=== PATIENT | male | born 1965 | race Caucasian/White ===

== ENCOUNTER 2021-06-08 11:15 | Emergency (ER) | payer BC ==
[2021-06-08] MEDS ORDERED: Acetaminophen 500 MG Tab PO ONE (12:10)
--- NOTE | 2021-06-08 12:12 | EDM.PDOC ---
ED HPI GENERAL MEDICAL PROBLEM - General Chief Complaint: Respiratory Problem Stated Complaint: COVID POSITIVE/HARD TIME BREATHING Time Seen by Provider: 06/08/21 12:00 Source of Information: Reports: Patient, RN. Denies: Old Records History Limitations: Reports: Other (no old records) - History of Present Illness INITIAL COMMENTS - FREE TEXT/NARRATIVE: 55 yo male here with Covid. He was dx at the [facility] this past week with the dz. He has a non-productive cough, malaise, and mild SOB. He would like a note for missing work. Onset: Gradual Onset Date: 06/02/21 Duration: Day(s):, Getting Worse Location: Reports: Chest, Generalized Quality: Reports: Ache (mild) Severity: Mild Improves with: Reports: Medication Worsens with: Reports: Other (time, meds wearing off) Context: Reports: Other (See HPI) Associated Symptoms: Reports: Cough, Malaise, Shortness of Breath (mild). Denies: Fever/Chills Treatments [employer]: Reports: Other (see below) (none in last 6 hrs) - Related Data Allergies Allergy/AdvReac Type Severity Reaction Status Date / Time No Known Allergies Allergy Verified 06/08/21 11:53 Home Meds: Home Meds NK [No Known Home Meds] 06/09/14 [History] Past Medical History HEENT History: Reports: Impaired Vision Neurological History: Reports: None - Infectious Disease History Infectious Disease History: Reports: Chicken Pox, Novel Coronavirus - Past Surgical History Head Surgeries/Procedures: Reports: None HEENT Surgical History: Reports: None Neurological Surgical History: Reports: Discectomy Dermatological Surgical History: Reports: None Social & Family History - Tobacco Use Tobacco Use Status *Q: Never Tobacco User Second Hand Smoke Exposure: No - Caffeine Use Caffeine Use: Reports: Coffee - Alcohol Use Days Per Week of Alcohol Use: 1 Number of Drinks Per Day: 2 Total Drinks Per Week: 2 - Recreational Drug Use Recreational Drug Use: No ED ROS GENERAL - Review of Systems Review Of Systems: See Below Constitutional: Reports: Malaise HEENT: Reports: No Symptoms Respiratory: Reports: Shortness of Breath (mild), Cough. Denies: Wheezing, Pleuritic Chest Pain, Sputum Cardiovascular: Reports: Dyspnea on Exertion (mild). Denies: Edema GI/Abdominal: Reports: No Symptoms : Reports: No Symptoms Musculoskeletal: Reports: No Symptoms Skin: Reports: No Symptoms Neurological: Reports: No Symptoms ED EXAM, GENERAL - Physical Exam Exam: See Below Exam Limited By: No Limitations General Appearance: Alert, WD/WN, No Apparent Distress Eye Exam: Bilateral Eye: Normal Inspection Ears: Normal External Exam, Normal Canal, Hearing Grossly Normal Ear Exam: Bilateral Ear: Auricle Normal, Canal Normal Nose: Normal Inspection, No Blood Throat/Mouth: Normal Inspection, Normal Lips, Normal Oropharynx, Normal Voice, No Airway Compromise Head: Atraumatic, Normocephalic Neck: Normal Inspection Respiratory/Chest: No Respiratory Distress, No Accessory Muscle Use, Crackles (diffusely). No: Accessory Muscle Use Cardiovascular: Regular Rate, Rhythm, No Edema GI/Abdominal: Normal Bowel Sounds, Soft, Non-Tender, No Distention Extremities: Normal Inspection, Non-Tender, No Pedal Edema. No: Ana Laura's Sign Neurological: Alert, Oriented, CN II-XII Intact, Normal Cognition, No Motor/Sensory Deficits Psychiatric: Normal Affect, Normal Mood Skin Exam: Warm, Dry, Intact, Normal Color, No Rash Course - Vital Signs Last Recorded V/S: Last Vital Signs Temp 36.6 C 06/08/21 11:54 Pulse 84 06/08/21 11:54 Resp 18 06/08/21 11:54 BP 110/64 06/08/21 11:54 Pulse Ox 98 06/08/21 11:54 - Orders/Labs/Meds Labs: Laboratory Tests 06/08/21 Range/Units 12:31 WBC 2.8 L (4.5-11.0) K/uL RBC 4.42 (4.30-5.90) M/uL Hgb 13.8 (12.0-15.0) g/dL Hct 39.8 L (40.0-54.0) % MCV 90 (80-98) fL MCH 31 (27-31) pg MCHC 35 (32-36) % Plt Count 110 L (150-400) K/uL Neut % (Auto) 80.2 H (36-66) % Lymph % (Auto) 15.2 L (24-44) % [place] % (Auto) 4.6 (2-6) % Eos % (Auto) 0.0 L (2-4) % Baso % (Auto) 0.0 (0-1) % Meds: Medications Discontinued Medications Generic Name Dose Route Start Last Admin Trade Name Barbra PRN Reason Stop Dose Admin Acetaminophen 1,000 mg 06/08/21 12:10 06/08/21 12:27 Acetaminophen 500 Mg Tab PO 06/08/21 12:11 1,000 mg ONETIME ONE Administration Departure - Departure Time of Disposition: 12:42 Disposition: Home, Self-Care 01 Condition: Fair Clinical Impression: COVID-19 - Discharge Information *PRESCRIPTION DRUG MONITORING PROGRAM REVIEWED*: Not Applicable *COPY OF PRESCRIPTION DRUG MONITORING REPORT IN PATIENT ENEDINA: Not Applicable Instructions: COVID-19 Frequently Asked Questions, 10 Things You Can Do to Manage Your COVID-19 Symptoms at Home - [facility] (03/21/2021) Referrals: PCP,None [Primary Care Provider] - Forms: ED Department Discharge, ED Return to Work/School Form Additional Instructions: Take acetaminophen for body aches and fever. Lower your risk of blood clots by moving around every hour during the day and taking a baby aspirin daily. Boost your immune system by taking Zinc 25-50 mg daily and Vitamin D 0084-4012 units daily. Recheck if worse. Sepsis Event Note (ED) - Evaluation Sepsis Screening Result: No Definite Risk - Focused Exam Vital Signs: Vital Signs Temp Pulse Resp BP Pulse Ox 06/08/21 11:54 36.6 C 84 18 110/64 98 06/08/21 11:43 36.6 C 84 18 110/64 98
== END 2021-06-08 13:34 | disposition home or self-care (01) ==
LOC: JP.ED 11:15
DX: U07.1 COVID-19 (principal)
CPT/HCPCS: 36415; 85025; 99283; A9270

== ENCOUNTER 2021-06-12 02:45 | Emergency (ER) | payer BC ==
--- NOTE | 2021-06-12 03:13 | EDM.PDOC ---
ED HPI GENERAL MEDICAL PROBLEM - General Chief Complaint: Respiratory Problem Stated Complaint: COVID POSITIVE, LOW OXYGEN Time Seen by Provider: 06/12/21 03:08 Source of Information: Reports: Patient, Old Records History Limitations: Reports: No Limitations - History of Present Illness INITIAL COMMENTS - FREE TEXT/NARRATIVE: It is a 55-year-old male presenting to the ED for evaluation of increasing shortness of breath and hypoxia. Patient was diagnosed on 06/04/2021 with COVID- 19. He is unvaccinated. He does not have any significant past medical history including denying smoking, diabetes, hypertension, hyperlipidemia, or an immunodeficiency disease. The patient received monoclonal antibody therapy on 06/10/2021. He has remained at home but is checking his oximetry and reports that tonight his oximetry dropped to 84% on room air. Patient is symptomatically feeling more short of breath. He endorses having headache, cough, nasal congestion with sore throat, increasing dyspnea, nausea, and body aches. He has had a diminished appetite as well. - Related Data Allergies Allergy/AdvReac Type Severity Reaction Status Date / Time No Known Allergies Allergy Verified 06/12/21 02:53 Home Meds: Home Meds NK [No Known Home Meds] 06/09/14 [History] Past Medical History HEENT History: Reports: Impaired Vision Neurological History: Reports: None - Infectious Disease History Infectious Disease History: Reports: Chicken Pox, Novel Coronavirus - Past Surgical History Head Surgeries/Procedures: Reports: None HEENT Surgical History: Reports: None Neurological Surgical History: Reports: Discectomy Dermatological Surgical History: Reports: None Social & Family History - Tobacco Use Tobacco Use Status *Q: Never Tobacco User - Caffeine Use Caffeine Use: Reports: Coffee - Recreational Drug Use Recreational Drug Use: No ED ROS GENERAL - Review of Systems Review Of Systems: See Below Constitutional: Reports: Fever, Chills, Malaise, Weakness, Fatigue, Decreased Appetite HEENT: Reports: Rhinitis, Throat Pain Respiratory: Reports: Shortness of Breath, Cough Cardiovascular: Reports: No Symptoms Endocrine: Reports: Fatigue GI/Abdominal: Reports: Nausea : Reports: No Symptoms Musculoskeletal: Reports: Muscle Pain Skin: Reports: No Symptoms Neurological: Reports: Dizziness, Headache Psychiatric: Reports: Anxiety Hematologic/Lymphatic: Reports: No Symptoms Immunologic: Reports: No Symptoms ED EXAM, GENERAL - Physical Exam Exam: See Below Exam Limited By: No Limitations General Appearance: Alert, Anxious, Mild Distress Eye Exam: Bilateral Eye: EOMI, PERRL Nose: Nasal Swelling, Clear Rhinorrhea Throat/Mouth: Normal Inspection, Normal Oropharynx, Normal Voice, No Airway Compromise Head: Atraumatic, Normocephalic Neck: Normal Inspection, Supple, Full Range of Motion. No: Lymphadenopathy (R), Lymphadenopathy (L) Respiratory/Chest: No Respiratory Distress, No Accessory Muscle Use, Rhonchi (Scattered bilateral rhonchi) Cardiovascular: Normal Peripheral Pulses, Regular Rate, Rhythm, No Murmur Peripheral Pulses: 2+: Radial (L), Radial (R) GI/Abdominal: Normal Bowel Sounds, Soft, Non-Tender Back Exam: Normal Inspection, Full Range of Motion Extremities: Normal Inspection, Normal Range of Motion Neurological: Alert, Oriented, Normal Cognition, No Motor/Sensory Deficits Psychiatric: Normal Affect, Anxious Skin Exam: Warm, Dry, Intact, Normal Color, No Rash #1 Interpretation EKG Date: 06/12/21 Time: 03:11 Rhythm: NSR Rate (Beats/Min): 61 Crosby: LAD-Left Crosby Deviation P-Wave: Present QRS: Normal (Early R wave transition in the precordial leads) ST-T: Normal QT: Normal Comparison: NA - No Prior EKG Course - Vital Signs Last Recorded V/S: Last Vital Signs Temp 36.6 C 06/12/21 05:58 Pulse 56 L 06/12/21 11:20 Resp 16 06/12/21 06:04 BP 96/55 L 06/12/21 11:20 Pulse Ox 90 L 06/12/21 11:20 - Orders/Labs/Meds Orders: Active Orders 24 hr Category Date Time Status HEPATIC FUNCTION PANEL,HFP [CHEM] Stat Lab 06/12/21 05:25 Ordered Isolation [COMM] Stat Oth 06/12/21 05:21 Ordered Saline Lock Insert [OM.PC] Routine Oth 06/12/21 04:08 Ordered EKG 12 Lead [EK] Routine Ther 06/12/21 03:05 Ordered Labs: Laboratory Tests 06/12/21 06/12/21 06/12/21 Range/Units 03:20 03:20 03:20 WBC 2.9 L (4.5-11.0) K/uL RBC 4.48 (4.30-5.90) M/uL Hgb 14.2 (12.0-15.0) g/dL Hct 39.2 L (40.0-54.0) % MCV 88 (80-98) fL MCH 32 H (27-31) pg MCHC 36 (32-36) % Plt Count 134 L (150-400) K/uL Neut % (Auto) 77.9 H (36-66) % Lymph % (Auto) 15.0 L (24-44) % [place] % (Auto) 6.8 H (2-6) % Eos % (Auto) 0.0 L (2-4) % Baso % (Auto) 0.3 (0-1) % D-Dimer, Quantitative 1358.38 H (0.0-500.0) ng/mL Sodium 121 L (140-148) mmol/L Potassium 3.7 (3.6-5.2) mmol/L Chloride 84 L (100-108) mmol/L Carbon Dioxide 32 (21-32) mmol/L Anion Gap 8.7 (5.0-14.0) mmol/L BUN 10 (7-18) mg/dL Creatinine 1.0 (0.8-1.3) mg/dL Est Cr Clr Drug Dosing 77.58 mL/min Estimated GFR (MDRD) > 60 (>60) Glucose 113 H (74-106) mg/dL Lactic Acid (0.4-2.0) mmol/L Calcium 7.6 L (8.5-10.1) mg/dL Ferritin 3734 H (8-388) ng/ml Total Bilirubin 0.5 (0.2-1.0) mg/dL AST 308 H (15-37) U/L ALT 113 H (12-78) U/L Alkaline Phosphatase 69 (46-116) U/L Lactate Dehydrogenase 720 H (85-227) U/L Troponin I < 0.017 (0.000-0.056) ng/mL C-Reactive Protein 2.65 H (0.0-0.3) mg/dL Total Protein 5.2 L (6.4-8.2) g/dL Albumin 2.7 L (3.4-5.0) g/dL Globulin 2.5 (2.3-3.5) g/dL Albumin/Globulin Ratio 1.1 L (1.2-2.2) Procalcitonin ng/mL 06/12/21 06/12/21 Range/Units 03:20 03:20 WBC (4.5-11.0) K/uL RBC (4.30-5.90) M/uL Hgb (12.0-15.0) g/dL Hct (40.0-54.0) % MCV (80-98) fL MCH (27-31) pg MCHC (32-36) % Plt Count (150-400) K/uL Neut % (Auto) (36-66) % Lymph % (Auto) (24-44) % [place] % (Auto) (2-6) % Eos % (Auto) (2-4) % Baso % (Auto) (0-1) % D-Dimer, Quantitative (0.0-500.0) ng/mL Sodium (140-148) mmol/L Potassium (3.6-5.2) mmol/L Chloride (100-108) mmol/L Carbon Dioxide (21-32) mmol/L Anion Gap (5.0-14.0) mmol/L BUN (7-18) mg/dL Creatinine (0.8-1.3) mg/dL Est Cr Clr Drug Dosing mL/min Estimated GFR (MDRD) (>60) Glucose (74-106) mg/dL Lactic Acid 1.5 (0.4-2.0) mmol/L Calcium (8.5-10.1) mg/dL Ferritin (8-388) ng/ml Total Bilirubin (0.2-1.0) mg/dL AST (15-37) U/L ALT (12-78) U/L Alkaline Phosphatase (46-116) U/L Lactate Dehydrogenase (85-227) U/L Troponin I (0.000-0.056) ng/mL C-Reactive Protein (0.0-0.3) mg/dL Total Protein (6.4-8.2) g/dL Albumin (3.4-5.0) g/dL Globulin (2.3-3.5) g/dL Albumin/Globulin Ratio (1.2-2.2) Procalcitonin 0.06 ng/mL Meds: Medications Discontinued Medications Generic Name Dose Route Start Last Admin Trade Name Freq PRN Reason Stop Dose Admin Acetaminophen 650 mg 10/07/21 05:21 06/12/21 05:58 Acetaminophen 325 Mg Tab PO 650 mg Q4H PRN Administration Fever Greater Than 101 Dexamethasone 6 mg 06/12/21 05:30 06/12/21 10:02 Dexamethasone 4 Mg/Ml Sdv IVPUSH 06/20/21 09:01 Not Given DAILY ABDIRASHID Sodium Chloride 100 mls @ 4 mls/sec 06/12/21 04:23 06/12/21 04:39 Normal Saline IV 06/12/21 04:24 4 mls/sec ASDIRECTED STA Administration Remdesivir 200 mg/ Sodium 250 mls @ 250 mls/hr 06/12/21 05:21 06/12/21 06:06 Chloride IV 06/12/21 05:22 Not Given ONETIME ONE Remdesivir 200 mg/ Sodium 250 mls @ 250 mls/hr 06/12/21 05:24 06/12/21 06:03 Chloride IV 06/12/21 05:25 250 mls/hr ONETIME ONE Administration Iopamidol 100 ml 06/12/21 04:23 06/12/21 04:38 Iopamidol 755 Mg/Ml 100 Ml Bottle IV 06/12/21 04:24 100 ml . DIRECTED STA Administration Sodium Chloride 10 ml 06/12/21 04:08 06/12/21 04:14 Sodium Chloride 0.9% 10 Ml Syringe FLUSH 10 ml ASDIRECTED PRN Administration Keep Vein Open - Radiology Interpretation Free Text/Narrative:: I reviewed the images and report of the portable chest x-ray which shows diffuse patchy infiltrates in bilateral lung torres consistent with COVID-19. I reviewed the images of the CT chest angiogram showing diffuse groundglass infiltrates bilaterally consistent with a viral pneumonia due to COVID-19. There is no evidence for pulmonary emboli. - Re-Assessments/Exams Free Text/Narrative Re-Assessment/Exam: 06/12/21 05:10 reviewed the patient's labs with a CBC showing a leukocyte count of 2.9, hemoglobin of 14.2, hematocrit of 39.2 and a platelet count of 134,000. The comprehensive metabolic panel is remarkable for a sodium of 121, potassium 3.7, chloride of 84, bicarbonate of 32, BUN of 10 with a creatinine of 1.0 and a glucose of 113. Calcium is low at 7.6. The AST is 303 and the ALT is 113. The D-dimer is 1358. For this reason we proceeded with a CT angiogram of the chest in addition to the hypoxia the patient is exhibiting. The CT angio of the chest shows diffuse groundglass patchy infiltrates in both lungs consistent with a viral pneumonia due to COVID-19. There was no evidence for pulmonary emboli. The lactic acid is 1.5, procalcitonin of 0.06, ferritin of 3734, C- reactive protein of 2.65, LDH of 720 and troponin is less than 0.017. The patient is requiring at least a liter per minute of oxygen via nasal cannula to maintain saturations above 90%. With his extensive as his pulmonary groundglass infiltrates are causing his hypoxia, he will likely need hospitalization. There are currently no beds available here are in the surrounding area. Patient was placed on a waiting list for [facility] for hospitalization, until then we will have to border him in the ED. I did initiate therapy with dexamethasone and remdesivir in the ED pending the patient's admission. Departure - Departure Time of Disposition: 14:18 Disposition: Home, Self-Care 01 Clinical Impression: COVID-19, Pneumonia due to COVID-19 virus, Hyponatremia, Elevated liver transaminase level, Elevated d-dimer, Hypocalcemia, Hypoxia - Discharge Information Instructions: 10 Things You Can Do to Manage Your COVID-19 Symptoms at Home - [facility] (03/21/2021), COVID-19: What to Do If You Are Sick- [facility] (11/20/2020) Referrals: Rivera Frey CLERK [employer] [Primary Care Provider] - Forms: ED Department Discharge Additional Instructions: I recommend that you quarantine for five more days (end after 06/17). This will complete 14 days of quarantine. If your symptoms do not improve over the next few days you may need a longer quarantine period. Keep track of your oxygen numbers while you are at home and if you experience significant shortness of breath or have oxygen saturations that persist at a level less than 88% you should seek medical attention. Increase your activity slowly as tolerated over the next several days. Do your best to maintain adequate food and fluid intake. Sepsis Event Note (ED) - Evaluation Sepsis Screening Result: No Definite Risk - Focused Exam Vital Signs: Vital Signs Pulse Resp BP Pulse Ox 06/12/21 11:20 56 L 96/55 L 90 L 06/12/21 09:18 90/54 L 06/12/21 08:18 98/53 L 06/12/21 07:18 56 L 92/56 L 94 L 06/12/21 06:18 57 L 102/60 94 L 06/12/21 06:04 61 16 105/63 93 L - Problem List & Annotations (1) COVID-19 SNOMED Code(s): 305638485 Code(s): U07.1 - COVID-19 Status: Acute Priority: High (2) Elevated d-dimer SNOMED Code(s): 613768307 Code(s): R79.89 - OTHER SPECIFIED ABNORMAL FINDINGS OF BLOOD CHEMISTRY Status: Acute Priority: High (3) Elevated liver transaminase level SNOMED Code(s): 314361870 Code(s): R74.01 - ELEVATION OF LEVELS OF LIVER TRANSAMINASE LEVELS Status: Acute Priority: High (4) Hypocalcemia SNOMED Code(s): 1823935 Code(s): E83.51 - HYPOCALCEMIA Status: Acute Priority: High (5) Hyponatremia SNOMED Code(s): 97480762 Code(s): E87.1 - HYPO-OSMOLALITY AND HYPONATREMIA Status: Acute Priority: High (6) Hypoxia SNOMED Code(s): 865720283 Code(s): R09.02 - HYPOXEMIA Status: Acute Priority: High (7) Pneumonia due to COVID-19 virus SNOMED Code(s): 948628470898636643 Code(s): U07.1 - COVID-19; J12.82 - PNEUMONIA DUE TO CORONAVIRUS DISEASE 2019 Status: Acute Priority: High - Problem List Review Problem List Initiated/Reviewed/Updated: Yes - My Orders Last 24 Hours: My Active Orders 06/12/21 03:05 EKG 12 Lead [EK] Routine 06/12/21 04:08 Saline Lock Insert [OM.PC] Routine 06/12/21 05:21 Isolation [COMM] Stat 06/12/21 05:25 HEPATIC FUNCTION PANEL,HFP [CHEM] Stat - Assessment/Plan Last 24 Hours: My Active Orders 06/12/21 03:05 EKG 12 Lead [EK] Routine 06/12/21 04:08 Saline Lock Insert [OM.PC] Routine 06/12/21 05:21 Isolation [COMM] Stat 06/12/21 05:25 HEPATIC FUNCTION PANEL,HFP [CHEM] Stat
--- NOTE | 2021-06-12 03:50 | CRLCR ---
For Patients: As a result of the Cures Act, medical imaging exams and procedure reports are released immediately into your electronic medical record. You may view this report before your referring provider. If you have questions, please contact your health care provider. Indication: Dyspnea and hypoxia. COVID infection. Technique: Chest 1 view Comparison: None Findings/Impression: Cardiovascular and mediastinum: Normal heart size with aortic tortuosity and atherosclerotic calcification. Lungs and pleural space: No pleural effusion or pneumothorax. Patchy bilateral airspace opacities consistent pneumonia, presumed COVID-19 pneumonia. Bones and soft tissues: No acute findings. Dictated by Chino Sharma MD @ 06/12/2021 3:47:36 AM (Electronically Signed)
[2021-06-12] MEDS ORDERED: Sodium Chloride 0.9% 10 ML Syringe FLUSH PRN (04:08)
[2021-06-12] MEDS ORDERED: Sodium Chloride 0.9% 100 ML IV STA (04:23)
[2021-06-12] MEDS ORDERED: Iopamidol 755 Mg/ML 100 ML Bottle IV STA (04:23)
[2021-06-12] MEDS ORDERED: REMDESIVIR 200 MG in Sodium Chloride 0.9% 250 ML IV ONE ×2 (05:21→05:24)
[2021-06-12] MEDS ORDERED: Acetaminophen 325 MG Tab PO PRN (05:21)
[2021-06-12] MEDS: Dexamethasone 4 MG/ML SDV IVPUSH SCH ×2 (05:58→10:02)
--- NOTE | 2021-06-12 06:12 | CRLCT ---
For Patients: As a result of the Century Cures Act, medical imaging exams and procedure reports are released immediately into your electronic medical record. You may view this report before your referring provider. If you have questions, please contact your health care provider. INDICATION: Hypoxia, COVID infection TECHNIQUE: CT chest PE was acquired with 100 cc Isovue 370 intravenous contrast. COMPARISON: None. FINDINGS: Heart and vasculature: Contrast opacification of the pulmonary arterial tree is adequate. No sign of pulmonary embolism. Thoracic aorta is normal in caliber with atherosclerotic calcification. No pericardial effusion. Lungs and pleural: Trace bilateral pleural effusions. Extensive bilateral ground-glass opacities throughout both lungs. Lymph nodes/mediastinum: Subcarinal lymph nodes measure 11 millimeters, right hilar lymph nodes measure 13 millimeters and left paratracheal lymph nodes measure 10 millimeters. Chest wall: No masses. Upper abdomen: 2 millimeter hypodensity within the dome of the liver which is too small for characterization. Bones: Unremarkable for age. IMPRESSION: 1. No evidence of pulmonary embolus. 2. Extensive bilateral ground-glass opacities consistent with a viral pneumonia, presumed COVID-19 pneumonia. 3. Mediastinal and hilar adenopathy, presumed reactive to the pulmonary infection. Please note that all CT scans at this facility use dose modulation, iterative reconstruction, and/or weight-based dosing when appropriate to reduce radiation dose to as low as reasonably achievable. Dictated by Chino Sharma MD @ 06/12/2021 6:11:29 AM (Electronically Signed)
--- NOTE | 2021-06-12 13:43 | PCM.CONS ---
H&P History of Present Illness - General Date of Service: 06/12/21 Source of Information: Patient, Provider History Limitations: Reports: No Limitations - History of Present Illness Initial Comments - Free Text/Narative: CC: I couldn't breathe HPI: Philip presented to the emergency room this morning with shortness of breath and hypoxia. He has had symptoms of Covid including cough, shortness of breath, headache, myalgias, weakness, nausea and diarrhea since June 04, about 9 days ago. He did receive monoclonal antibodies 2 days ago. He did not think that the monoclonal antibodies made him feel any better. He has been keeping track of his oxygen numbers at home and most of the time they have been in the low to mid 90s. This morning he noted that they were around 84% so he came to the emergency room for further evaluation at the direction of the nurse contact line. Initially in the emergency room his oxygenation was borderline with upper 80s and lower 90s. He was placed on 1 L of oxygen. He did receive a dose of remdesivir and dexamethasone. The patient reports that he is feeling much better at this time. His oxygenation has improved and he is in the low 90s on room air. He has not had recent fevers but did early in the course of the disease. His headaches have resolved. Overall he says he is feeling fairly decent. We did discuss admission for observation overnight versus monitoring things at home. He felt that with his pulse oximeter he would be able to keep a close eye on his clinical status and would like to try as an outpatient. - Related Data Allergies/Adverse Reactions: Allergies Allergy/AdvReac Type Severity Reaction Status Date / Time No Known Allergies Allergy Verified 06/12/21 02:53 Home Medications: Home Meds NK [No Known Home Meds] 06/09/14 [History] Past Medical History HEENT History: Reports: Impaired Vision Neurological History: Reports: None - Infectious Disease History Infectious Disease History: Reports: Chicken Pox, Novel Coronavirus - Past Surgical History Head Surgeries/Procedures: Reports: None HEENT Surgical History: Reports: None Neurological Surgical History: Reports: Discectomy Dermatological Surgical History: Reports: None Social & Family History - Family History Cardiac: Denies: CAD - Tobacco Use Tobacco Use Status *Q: Never Tobacco User - Caffeine Use Caffeine Use: Reports: Coffee - Alcohol Use Alcohol Use History: No - Recreational Drug Use Recreational Drug Use: No H&P Review of Systems - Review of Systems: Review Of Systems: See Below Free Text/Narrative: A complete 12 point review of systems was obtained. Pertinent positives and negatives are noted in the history of present illness. All other systems were reviewed and were negative except as noted. Exam - Exam Exam: See Below - Vital Signs Vital Signs: Last Vital Signs Temp 36.6 C 06/12/21 05:58 Pulse 56 L 06/12/21 11:20 Resp 16 06/12/21 06:04 BP 96/55 L 06/12/21 11:20 Pulse Ox 90 L 06/12/21 11:20 Weight: 72.575 kg - Exam Quality Assessment: No: Supplemental Oxygen General: Alert, Oriented, Cooperative. No: Mild Distress HEENT: Conjunctiva Clear, Mucosa Moist & [place] Lungs: Normal Respiratory Effort. No: Wheezing Cardiovascular: Regular Rate, Regular Rhythm GI/Abdominal Exam: Soft, No Distention Extremities: No Pedal Edema. No: Increased Warmth Skin: Warm, Dry Neuro Extensive - Mental Status: Alert, Oriented x3 Neuro Extensive - Motor, Sensory, Reflexes: No: Dysarthria, Tremor Psychiatric: Alert, Normal Affect - Patient Data Lab Results Last 24 hrs: Laboratory Results - last 24 hr 06/12/21 06/12/21 06/12/21 Range/Units 03:20 03:20 03:20 WBC 2.9 L (4.5-11.0) K/uL RBC 4.48 (4.30-5.90) M/uL Hgb 14.2 (12.0-15.0) g/dL Hct 39.2 L (40.0-54.0) % MCV 88 (80-98) fL MCH 32 H (27-31) pg MCHC 36 (32-36) % Plt Count 134 L (150-400) K/uL Neut % (Auto) 77.9 H (36-66) % Lymph % (Auto) 15.0 L (24-44) % [place] % (Auto) 6.8 H (2-6) % Eos % (Auto) 0.0 L (2-4) % Baso % (Auto) 0.3 (0-1) % D-Dimer, Quantitative 1358.38 H (0.0-500.0) ng/mL Sodium 121 L (140-148) mmol/L Potassium 3.7 (3.6-5.2) mmol/L Chloride 84 L (100-108) mmol/L Carbon Dioxide 32 (21-32) mmol/L Anion Gap 8.7 (5.0-14.0) mmol/L BUN 10 (7-18) mg/dL Creatinine 1.0 (0.8-1.3) mg/dL Est Cr Clr Drug Dosing 77.58 mL/min Estimated GFR (MDRD) > 60 (>60) Glucose 113 H (74-106) mg/dL Lactic Acid (0.4-2.0) mmol/L Calcium 7.6 L (8.5-10.1) mg/dL Ferritin 3734 H (8-388) ng/ml Total Bilirubin 0.5 (0.2-1.0) mg/dL AST 308 H (15-37) U/L ALT 113 H (12-78) U/L Alkaline Phosphatase 69 (46-116) U/L Lactate Dehydrogenase 720 H (85-227) U/L Troponin I < 0.017 (0.000-0.056) ng/mL C-Reactive Protein 2.65 H (0.0-0.3) mg/dL Total Protein 5.2 L (6.4-8.2) g/dL Albumin 2.7 L (3.4-5.0) g/dL Globulin 2.5 (2.3-3.5) g/dL Albumin/Globulin Ratio 1.1 L (1.2-2.2) Procalcitonin ng/mL 06/12/21 06/12/21 Range/Units 03:20 03:20 WBC (4.5-11.0) K/uL RBC (4.30-5.90) M/uL Hgb (12.0-15.0) g/dL Hct (40.0-54.0) % MCV (80-98) fL MCH (27-31) pg MCHC (32-36) % Plt Count (150-400) K/uL Neut % (Auto) (36-66) % Lymph % (Auto) (24-44) % [place] % (Auto) (2-6) % Eos % (Auto) (2-4) % Baso % (Auto) (0-1) % D-Dimer, Quantitative (0.0-500.0) ng/mL Sodium (140-148) mmol/L Potassium (3.6-5.2) mmol/L Chloride (100-108) mmol/L Carbon Dioxide (21-32) mmol/L Anion Gap (5.0-14.0) mmol/L BUN (7-18) mg/dL Creatinine (0.8-1.3) mg/dL Est Cr Clr Drug Dosing mL/min Estimated GFR (MDRD) (>60) Glucose (74-106) mg/dL Lactic Acid 1.5 (0.4-2.0) mmol/L Calcium (8.5-10.1) mg/dL Ferritin (8-388) ng/ml Total Bilirubin (0.2-1.0) mg/dL AST (15-37) U/L ALT (12-78) U/L Alkaline Phosphatase (46-116) U/L Lactate Dehydrogenase (85-227) U/L Troponin I (0.000-0.056) ng/mL C-Reactive Protein (0.0-0.3) mg/dL Total Protein (6.4-8.2) g/dL Albumin (3.4-5.0) g/dL Globulin (2.3-3.5) g/dL Albumin/Globulin Ratio (1.2-2.2) Procalcitonin 0.06 ng/mL Result Diagrams: 06/12/21 03:20 06/12/21 03:20 Imaging Impressions Last 24 hrs: Chest x-ray-image personally reviewed-mild diffuse patchy infiltrates especially in the lower lung torres. No effusions or masses. Heart size is normal. CT pulmonary angiogram-diffuse bilateral groundglass opacities especially in the lower lung torres consistent with Covid infection. No pulmonary embolus. Heart size normal and no pericardial effusion. Sepsis Event Note - Evaluation Sepsis Screening Result: No Definite Risk - Focused Exam Vital Signs: Vital Signs Temp Temp Pulse Resp BP Pulse Ox 06/12/21 11:20 56 L 96/55 L 90 L 06/12/21 09:18 90/54 L 06/12/21 08:18 98/53 L 06/12/21 07:18 56 L 92/56 L 94 L 06/12/21 06:18 57 L 102/60 94 L 06/12/21 06:04 61 16 105/63 93 L 06/12/21 05:58 36.6 C 06/12/21 05:12 57 L 94 L 06/12/21 04:34 106/65 06/12/21 04:14 36.7 C 63 18 92 L 06/12/21 03:35 67 105/65 93 L 06/12/21 02:55 36.4 C 61 20 108/59 L 91 L Consult PN Assessment/Plan Procedures: Procedures COMPLETE CBC W/AUTO DIFF WBC (06/08/21) EMERGENCY DEPT VISIT (06/08/21) EMERGENCY DEPT VISIT (06/09/14) IMMUNIZATION ADMIN (06/09/14) ROUTINE VENIPUNCTURE (06/08/21) RPR S/N/AX/GEN/TRNK2.6-7.5CM (06/09/14) TDAP VACCINE 7 YRS/> IM (06/09/14) X-RAY EXAM L-S SPINE 2/3 VWS (12/26/14) X-RAY EXAM OF HIP (12/26/14) (1) Pneumonia due to COVID-19 virus SNOMED Code(s): 699904148645763653 Code(s): U07.1 - COVID-19; J12.82 - PNEUMONIA DUE TO CORONAVIRUS DISEASE 2019 Priority: High Current Visit: Yes Problem List Initiated/Reviewed/Updated: Yes Plan: ASSESSMENT AND RECOMMENDATIONS - COVID-19 pneumonia -transient hypoxia this morning. Now saturating well on room air. Physically he is feeling good. He has had monoclonal antibodies within the last 48 hours. Did receive dexamethasone and remdesivir in the emergency room this morning. No fevers. We did discuss hospitalization for observation versus trial of outpatient management. Patient feels that since he is doing better he would like to try this at home. He does have a pulse oximeter. He does not have any chronic medical conditions that would make me worry he has a high risk for progressing to severe illness. D-dimer and CRP elevations are mild to moderate. I think he should be safe for outpatient management. Management will be symptomatic along with close monitoring of his oxygenation. I did encourage him to return to the emergency room if he develops significant shortness of breath or if he has persistent hypoxia while he is at home. He was in agreement with the plan to try this at home. -Patient is stable and safe for outpatient management at this point. He does not require supplemental oxygen. -Symptomatic management of cough and/or fever -Return to the emergency room if symptoms progress or you have persistent hypoxi a Requesting Provider: Dr Thapa Date Consult Requested: 06/12/21 Reason for Consult: covid Patient History Reviewed: Yes Admission H&P Reviewed: No Notified Requestor: Yes Time Spent (in minutes): 45
== END 2021-06-12 14:18 | disposition home or self-care (01) ==
LOC: JP.ED 02:45
DX: U07.1 COVID-19 (principal); J12.82 Pneumonia due to coronavirus disease 2019; E87.1 Hypo-osmolality and hyponatremia; E83.51 Hypocalcemia; R79.89 Other specified abnormal findings of blood chemistry; R74.01 Elevation of levels of liver transaminase levels
CPT/HCPCS: 36415; 71045; 71275; 80053; 82728; 83605; 83615; 84145; 84484; 85025; 85379; 86140; 93005; 99285; A9270; J1100; J7050; Q9967

== ENCOUNTER 2021-06-13 11:02 | Emergency (ER) | payer BC ==
--- NOTE | 2021-06-13 12:52 | EDM.PDOC ---
ED HPI GENERAL MEDICAL PROBLEM - General Chief Complaint: Respiratory Problem Stated Complaint: COVID POSITIVE, SOB Time Seen by Provider: 06/13/21 11:20 Source of Information: Reports: Patient, Old Records History Limitations: Reports: No Limitations - History of Present Illness INITIAL COMMENTS - FREE TEXT/NARRATIVE: pt had a positive covid test on jun 04. He has been dealing with sob and has been monitoring his o2 sats at home. He id get some low readings and was concerned. He has been seen several times. He has received the monoclonal therapy. He has been drinking ok. His appetite is poor. Onset: Gradual, Other (pt had a positive test on 06/04. ) Duration: Day(s): Location: Reports: Chest, Generalized Associated Symptoms: Reports: Cough, Headaches, Weakness - Related Data Allergies Allergy/AdvReac Type Severity Reaction Status Date / Time No Known Allergies Allergy Verified 06/12/21 02:53 Home Meds: Home Meds NK [No Known Home Meds] 06/09/14 [History] Past Medical History HEENT History: Reports: Impaired Vision Respiratory History: Reports: Other (See Below) Other Respiratory History: 06/04/21 pos for covid Neurological History: Reports: None - Infectious Disease History Infectious Disease History: Reports: Chicken Pox, Novel Coronavirus - Past Surgical History Head Surgeries/Procedures: Reports: None HEENT Surgical History: Reports: None Neurological Surgical History: Reports: Discectomy Dermatological Surgical History: Reports: None Social & Family History - Tobacco Use Tobacco Use Status *Q: Never Tobacco User - Caffeine Use Caffeine Use: Reports: Coffee - Recreational Drug Use Recreational Drug Use: No ED ROS GENERAL - Review of Systems Review Of Systems: See Below Constitutional: Reports: Malaise, Weakness HEENT: Reports: No Symptoms Respiratory: Reports: Shortness of Breath, Other (o2 sat reading at home was low. pt is coughing up bloody sputum but this was going on before he had the angio of the chest. ) Cardiovascular: Reports: No Symptoms Endocrine: Reports: No Symptoms GI/Abdominal: Reports: Decreased Appetite : Reports: No Symptoms Musculoskeletal: Reports: No Symptoms Skin: Reports: No Symptoms ED EXAM, GENERAL - Physical Exam Exam: See Below Free Text/Narrative:: pt arrived concerned that his o2 sats were low on the o2 sater he has at home. he is feeling about the same. His appetite continues to be poor. Exam Limited By: No Limitations General Appearance: Alert, Anxious, Mild Distress Ears: Normal TMs Nose: Normal Inspection Throat/Mouth: Normal Inspection Head: Atraumatic Neck: Normal Inspection Respiratory/Chest: Other (pt has rhonchi in the upper lung torres. ) Cardiovascular: Regular Rate, Rhythm GI/Abdominal: Soft, Non-Tender (Male) Exam: Deferred Rectal (Males) Exam: Deferred Back Exam: Normal Inspection Neurological: Alert, Oriented, Normal Cognition Course - Vital Signs Last Recorded V/S: Last Vital Signs Temp 35.2 C L 06/13/21 11:18 Pulse 49 L 06/13/21 11:18 Resp 20 06/13/21 11:18 BP 105/58 L 06/13/21 11:18 Pulse Ox 92 L 06/13/21 11:18 - Orders/Labs/Meds Labs: Laboratory Tests 06/13/21 06/13/21 Range/Units 12:06 12:06 WBC 4.3 L (4.5-11.0) K/uL RBC 4.63 (4.30-5.90) M/uL Hgb 14.6 (12.0-15.0) g/dL Hct 41.3 (40.0-54.0) % MCV 89 (80-98) fL MCH 32 H (27-31) pg MCHC 35 (32-36) % Plt Count 186 (150-400) K/uL Neut % (Auto) 71.1 H (36-66) % Lymph % (Auto) 11.4 L (24-44) % [place] % (Auto) 17.0 H (2-6) % Eos % (Auto) 0.0 L (2-4) % Baso % (Auto) 0.5 (0-1) % Sodium 128 L (140-148) mmol/L Potassium 3.8 (3.6-5.2) mmol/L Chloride 91 L (100-108) mmol/L Carbon Dioxide 29 (21-32) mmol/L Anion Gap 11.8 (5.0-14.0) mmol/L BUN 18 D (7-18) mg/dL Creatinine 0.8 (0.8-1.3) mg/dL Est Cr Clr Drug Dosing 95.26 mL/min Estimated GFR (MDRD) > 60 (>60) Glucose 123 H (74-106) mg/dL Calcium 8.0 L (8.5-10.1) mg/dL Total Bilirubin 0.4 (0.2-1.0) mg/dL AST 171 H (15-37) U/L ALT 103 H (12-78) U/L Alkaline Phosphatase 68 (46-116) U/L Total Protein 5.4 L (6.4-8.2) g/dL Albumin 2.8 L (3.4-5.0) g/dL Globulin 2.6 (2.3-3.5) g/dL Albumin/Globulin Ratio 1.1 L (1.2-2.2) - Re-Assessments/Exams Free Text/Narrative Re-Assessment/Exam: 06/13/21 13:02 pt had chems done. His sodium was up from last time. His liver enzymes are improving. He has had a angio of the chest which did not show clots. Departure - Departure Time of Disposition: 12:51 Disposition: Home, Self-Care 01 Condition: Fair Clinical Impression: Pneumonia due to COVID-19 virus - Discharge Information Instructions: COVID-19 Frequently Asked Questions, What You Should Know About COVID-19 to Protect Yourself and Others - CDC, When You've Been Fully Vaccinated: How to Protect Yourself and Others - CDC (01/16/2021) Referrals: PCP,None [Primary Care Provider] - Forms: ED Department Discharge Sepsis Event Note (ED) - Focused Exam Vital Signs: Vital Signs Temp Pulse Resp BP Pulse Ox 06/13/21 11:18 35.2 C L 49 L 20 105/58 L 92 L
== END 2021-06-13 13:15 | disposition home or self-care (01) ==
LOC: JP.ED 11:02
DX: U07.1 COVID-19 (principal); J12.82 Pneumonia due to coronavirus disease 2019
CPT/HCPCS: 36415; 80053; 85025; 99283

== ENCOUNTER 2024-06-28 08:12 | Day surgery (SDC) | payer BC ==
[2024-06-28] MEDS ORDERED: Propofol 200 MG/20 ML SDV ONE (08:17)
[2024-06-28] MEDS ORDERED: Midazolam 1 MG/ML 2 ML SDV ONE (08:17)
[2024-06-28] MEDS ORDERED: fentaNYL 100 MCG/2 ML SDV ONE (08:17)
[2024-06-28] MEDS ORDERED: Dexamethasone 4 MG/ML SDV ONE (08:17)
[2024-06-28] MEDS ORDERED: Ondansetron 4 MG/2 ML SDV ONE (08:17)
[2024-06-28] MEDS ORDERED: Bupivacaine 0.5% 30 ML SDV ONE (08:18)
[2024-06-28 08:38] LABS: BASOPHILS ABSOLUTE AUTO 0.04 K/uL (0.00-0.10); EOSINOPHILS ABSOLUTE AUTO 0.11 K/uL (0.00-0.40); EOSINOPHILS PERCENT AUTO 2.6 % (0.0-5.4); HEMATOCRIT 44.3 % (38.4-49.7); HEMOGLOBIN 15.1 g/dL (12.9-16.9); IMMATURE GRAN PERCENT AUTO 0.2 % (0.0-0.7); LYMPHOCYTES ABSOLUTE AUTO 1.47 K/uL (0.8-3.3); LYMPHOCYTES PERCENT AUTO 35.1 % (11.4-47.7); MEAN CORPUSCULAR HEMOGLOBIN 31.8 pg (31.6-35.5); MEAN CORPUSCULAR HGB CONC 34.1 g/dL (31.6-35.5); MEAN CORPUSCULAR VOLUME 93.3 fL (81.4-99.0); MONOCYTES ABSOLUTE AUTO 0.44 K/uL (0.20-0.90); MONOCYTES PERCENT AUTO 10.5 % (3.3-12.6); NEUTROPHILS ABSOLUTE AUTO 2.12 K/uL (1.0-7.6); NEUTROPHILS PERCENT AUTO 50.6 % (40.0-78.1); PLATELET COUNT,PLT 265 K/uL (130-375); RED BLOOD CELL COUNT 4.75 M/uL (4.14-5.76); WHITE BLOOD CELL COUNT,WBC 4.2 K/uL (3.2-11.0)
[2024-06-28 08:39] LABS: IMMATURE GRAN ABSOLUTE AUTO 0.01 K/uL (0.00-0.23)
[2024-06-28] MEDS ORDERED: Bupivacaine 0.5% 50 ML MDV ONE (08:51)
[2024-06-28 08:58] LABS: A/G RATIO 1.1 (1.2-2.2); ALANINE AMINOTRANSFERASE,ALT 26 U/L (12-78); ALBUMIN 3.8 g/dL (3.4-5.0); ALKALINE PHOSPHATASE 107 U/L (46-116); ANION GAP 10.6 mmol/L (5.0-14.0); ASPARTATE AMNIOTRANSFERASE,AST 21 U/L (15-37); BILIRUBIN TOTAL 0.4 mg/dL (0.2-1.0); BLOOD UREA NITROGEN,BUN 12 mg/dL (7-18); CALCIUM 9.3 mg/dL (8.5-10.1); CARBON DIOXIDE,CO2 26 mmol/L (21-32); CHLORIDE,CL 106 mmol/L (100-108); CREATININE 1.2 mg/dL (0.8-1.3); ESTIMATED GFR 71 mL/min (>60); GLUCOSE RANDOM 85 mg/dL (74-106); POTASSIUM,K 3.6 mmol/L (3.6-5.2); PROTEIN TOTAL,TP 7.2 g/dL (6.4-8.2); SODIUM,NA 143 mmol/L (140-148)
[2024-06-28] MEDS: Nozin Nasal Sanitizer NASBOTH ONE (09:06)
[2024-06-28] MEDS: Lactated Ringers 1,000 ML IV SCH (09:08)
[2024-06-28] MEDS: ceFAZolin 2 GM in Premix Bag 1 BAG IV ONE (09:35)
[2024-06-28] MEDS: Acetaminophen/oxyCODONE 325-5 MG Tab PO PRN (12:21)
== END 2024-06-28 12:52 | disposition home or self-care (01) ==
LOC: JP.SDS 08:12
PROVIDERS: ATTEND Specialist
DX: M19.011 Primary osteoarthritis, right shoulder (principal); M25.811 Other specified joint disorders, right shoulder; E78.5 Hyperlipidemia, unspecified; E66.9 Obesity, unspecified; Z88.0 Allergy status to penicillin
CPT/HCPCS: 00450; 29822; 29824; 36415; 80053; 85025; A9270; C1713; J0665; J0690; J1100; J2250; J2405; J2704; J3010; J7120